=== PATIENT | male | born 1980 | race African-American/Black ===

== ENCOUNTER 2023-07-10 11:18 | Emergency (ER) | payer SELFPAY ==
[~2023-07-10] VITALS: Ht 172.7 cm; Wt 78.0 kg
[~2023-07-10 11:18] MED LIST: ASPI-867 PO; ATOR10TA PO
[2023-07-10 11:27] VITALS: O2SAT 99
[2023-07-10] MEDS: FLUORESCEIN SODIUM 1MG/STRIP BOTHEYE STA (12:57)
[2023-07-10] MEDS: CIPROFLOXACIN 0.3% OPHTH SOLN 2.5ML RIGHTEYE STA (13:45)
[2023-07-10] MEDS: TETANUS, DIPHTHERIA, PERTUSSIS VAC/PF 0.5ML (>10YR OLD) IM ONE (13:45)
[2023-07-10] MEDS ORDERED: CIPR2.5D20 RIGHTEYE (15:20)
[2023-07-10 15:42] VITALS: BP 148/87; PULSE 98; RESP 17; TEMP 98.2
== END 2023-07-10 15:46 | disposition home or self-care (01) ==
LOC: ER 11:18
DX: T15.01XA Foreign body in cornea, right eye, initial encounter (principal); E78.00 Pure hypercholesterolemia, unspecified; F12.90 Cannabis use, unspecified, uncomplicated; H16.001 Unspecified corneal ulcer, right eye; X58.XXXA Exposure to other specified factors, initial encounter; Y93.89 Activity, other specified; Y92.89 Other specified places as the place of occurrence of the external cause; Y99.8 Other external cause status
CPT/HCPCS: 70486; 99284